=== PATIENT | female | born 1995 | race Two or more races ===

== ENCOUNTER 2024-12-13 11:20 | Day surgery (SDC) | payer BC, SELFPAY ==
[2024-12-12 08:51] VITALS: BMI 33.8
[2024-12-12 09:33] LABS: Basophils # (Auto) 0.1 Thou/mm3 (0.0-0.2); Basophils % (Auto) 1 % (0-2.5); Eosinophils # (Auto) 0.1 Thou/mm3 (0.0-0.5); Eosinophils % (Auto) 2 % (0-10); Hematocrit 42.3 % (36.0-46.0); Hemoglobin 13.7 g/dL (12.0-16.0); Immature Granulocytes Auto 0.02 Thou/mm3 (0.00-0.00); Lymphocytes # (Auto) 2.2 Thou/mm3 (1.0-4.8); Lymphocytes % (Auto) 30 % (10-50); Mean Corpuscular HGB Conc 32.4 g/dl (31.0-37.0); Mean Corpuscular Hemoglobin 27.7 pg (25.0-35.0); Mean Corpuscular Volume 86 fL (80-100); Monocytes # (Auto) 0.5 Thou/mm3 (0.0-0.8); Monocytes % (Auto) 7 % (0-12); Neutrophils # (Auto) 4.5 Thou/mm3 (1.8-7.7); Neutrophils % (Auto) 61 % (37-80); Nucleated Red Blood Cell # 0.00 Thou/mm3 (0.00-0.00); Nucleated Red Blood Cell % 0 /100 WBC (0); Platelet Count 370 Thou/mm3 (140-440); RDW Standard Deviation 44.0 fL (36.4-46.3); Red Blood Count 4.95 Miln/mm3 (4.00-5.20); White Blood Count 7.3 Thou/mm3 (3.6-11.0)
[2024-12-12 09:48] LABS: INR 1.0 (0.9-1.3); Partial Thromboplastin Time 31.4 Seconds (22.0-36.0); Prothrombin Time 10.7 Seconds (9.0-12.2)
[2024-12-12 09:58] LABS: Alanine Aminotransferase 19 U/L (10-49); Albumin, Serum 5.0 gm/dL (3.5-5.0); Albumin/Globulin Ratio 1.8 (1.2-2.2); Alkaline Phosphatase 86 U/L (46-116); Anion Gap 7 (7-16); Aspartate Amino Transferase 16 U/L (0-34); BUN/Creatinine Ratio 10 Ratio (12-20); Bilirubin,Total 0.4 mg/dL (0.3-1.2); Blood Urea Nitrogen 6 mg/dL (9-23); Calcium 9.8 mg/dL (8.3-10.6); Calcium (Corrected) 9.8 mg/dL (8.5-10.1); Carbon Dioxide 28.3 mMol/L (20.0-31.0); Chloride 105 mMol/L (98-107); Creatinine (Component) 0.6 mg/dL (0.6-1.3); Estimated Creatinine Clearance 145.8 mL/min (>60); Globulin 2.8 gm/dL (2.3-3.5); Glucose 92 mg/dL (74-106); Osmolality,Calculated 277 (275-295); Potassium 4.0 mMol/L (3.4-5.1); Sodium 140 mMol/L (136-145); Total Protein 7.8 gm/dL (5.7-8.2); eGFR > 60 See Note
[2024-12-12 10:02] LABS: HCG,Qualitative Serum Negative
--- NOTE | 2024-12-12 15:12 | SUR.PREOP ---
Pt notified to come in tomorrow at 1100.
[2024-12-13] VITALS (7 sets, daily range): BP systolic 101–130; BP diastolic 72–86; PULSE 65–75; RESP 13–20; TEMP 36.7–37.1; O2SAT 93–95; BMI 33.5
[2024-12-13] MEDS: RINGERS LACTATED 1000 ML 1,000 ML 20 ML IV (12:00)
--- NOTE | 2024-12-13 14:23 | SUR.PHASEII ---
1423: Pt. AAOx4, vitals stable, breathing unlabored, no complaint of pain or nausea, dressing to upper back CDI, no active bleed noted, report received from MD Bryan and Shayy JESSICA.
[2024-12-13] MEDS: ACETAMINOPHEN IVPB 1,000 MG/100 ML VIAL 250 MG IV (14:30)
--- NOTE | 2024-12-13 14:30 | PD.SUROPNT ---
Date of Procedure 12/13/24 Pre Op Diagnosis Infected sebaceous cyst of the back Post Op Diagnosis Same measuring 4 cm in diameter Procedure Excision of the sebaceous cyst from the back Findings Patient is found to have slightly inflamed sebaceous cyst at the back Procedure Description After the patient was brought to the operating room she was placed on prone position. Sedation was given by the anesthesiologist. The area was washed with ChloraPrep solution and draped in a sterile manner timeout was performed. Patient received 2 g of Ancef because of some redness over the cyst. The knee made a transverse incision and dissected out the cyst carefully using Aaliyah retractors and Adson forceps. The cyst was removed intact with all the contents and the capsule. There was bleeding points which were suture-ligated with 3-0 chromic and cautery. Subcutaneous tissue was closed with 3-0 chromic and I injected half percent Marcaine with epinephrine for analgesia. Skin was closed with interrupted 4-0 nylon stitches and dressing was applied with Adaptic and 4 x 4 gauze. Patient tolerated the procedure well. Anesthesia MAC Pathology / specimen Other Estimated Blood Loss 30 Surgeon Jesus Tineo MD Surgical Staff Operation Date: 12/13/24 13:15 Case Staff Anesthesiologist: Mason Bryan
[2024-12-13] MEDS: KETOROLAC INJ 30 MG/ML VIAL IVP (14:40)
--- NOTE | 2024-12-13 15:15 | SUR.PHASEII ---
1515: Pt. AAOx4, vitals stable, breathing unlabored, no complaint of pain or nausea, dressing to upper back CDI, no active bleed noted, pt. tolerated sips of water well, pt. ambulated to wheelchair with steady gait and no assist, no complications. Gave discharge instructions to the pt. and her ride, both verbalized understanding and had no further questions. Pt. left with all personal belongings.
== END 2024-12-13 15:15 | disposition home or self-care (01) ==
LOC: S2EX 15:49
PROVIDERS: Anesthesiology; PCP Family Medicine; Referring Provider Surgery; Visit Provider Surgery
PROC: (CPT 21931; principal; 2024-12-13 13:00)
DX: D23.5 Other benign neoplasm of skin of trunk (principal); L72.3 Sebaceous cyst; L08.9 Local infection of the skin and subcutaneous tissue, unspecified
CPT/HCPCS: 21931; 36415; 80053; 84703; 85025; 85610; 85730; A4649; J0131; J0690; J1885; J2250; J2704; J3010; J7120